=== PATIENT | female | born 1980 | race Hispanic/Latino ===

== ENCOUNTER 2017-09-29 20:17 | Emergency (ER) | payer BC, OTHER ==
[~2017-09-29] VITALS: Ht 157.5 cm; Wt 117.0 kg
[~2017-09-29 20:17] MED LIST: Z.0.CELEXA20 MG
[2017-09-29] MEDS: LORAZEPAM INJ 2 MG/ML VIAL IV ONE (20:50)
[2017-09-29] MEDS: PANTOPRAZOLE 40 MG 10ML VIAL IV STA (20:50)
[2017-09-29] MEDS: ONDANSETRON HCL INJ 2 MG/ML VIAL IV STA (20:50)
[2017-09-29] MEDS: SODIUM CHLORIDE 0.9% 1000ML 1,000 ML IV ONE (20:50)
[2017-09-29] MEDS: ACETAMINOPHEN 325 MG TAB PO ONE (21:09)
[2017-09-29 22:35] VITALS: BP 113/72
== END 2017-09-29 22:31 | disposition home or self-care (01) ==
LOC: FSED 20:17
DX: R10.13 Epigastric pain (principal); R11.2 Nausea with vomiting, unspecified; K21.9 Gastro-esophageal reflux disease without esophagitis; F41.1 Generalized anxiety disorder
CPT/HCPCS: 80053; 81003; 85025; 99284; J2060; J2405; J7030

== ENCOUNTER 2018-01-08 21:00 | Emergency (ER) | payer BC ==
[~2018-01-08] VITALS: Ht 160 cm; Wt 113.4 kg
[2018-01-08] MEDS ORDERED: FAMOTIDINE 20 MG/2 ML VIAL IV STA (21:25)
[2018-01-08] MEDS ORDERED: ONDANSETRON HCL INJ 2 MG/ML VIAL IV ONE (21:25)
[2018-01-08] MEDS ORDERED: SODIUM CHLORIDE 0.9% 1000ML 1,000 ML IV SCH (21:30)
[2018-01-08] MEDS ORDERED: LORAZEPAM INJ 2 MG/ML VIAL IV ONE (21:30)
[2018-01-08] MEDS ORDERED: KETOROLAC TROMETHAMINE 30 MG/ML VIAL IV STA (22:00)
--- NOTE | 2018-01-13 07:52 | Operative Report ---
DATE OF PROCEDURE: NO DICTATION, LENGTH 0:1 Job#: [id number] RI
--- OUTSIDE RECORDS SUMMARY | 2018-01-19 11:13 | XMS REPORT | Continuity of Care Document ---
Author Author [facility] Interface Address Unknown Phone Unavailable Problems Problem Status Onset Date Classification Date Reported Comments Source Influenza-like symptoms 04/23/2017 Diagnosis 04/23/2017 [facility] Exposure to Influenzavirus 04/23/2017 Diagnosis 04/23/2017 [facility] Headache 04/23/2017 Diagnosis 04/23/2017 [facility] Body mass index 40+ - severely obese 04/23/2017 Diagnosis 04/23/2017 [facility] Medications Medication Details Route Status Patient Instructions Ordering Provider Order Date Source Oseltamivir 75 MG Oral Capsule [Tamiflu] Tamiflu 75 mg capsule Take 1 capsule every day by oral route as directed for 10 days. Active [facility] Allergies, Adverse Reactions, Alerts Substance Category Reaction Severity Reaction type Status Date Reported Comments Source Immunizations Immunization Date Given Site Status Last Updated Comments Source Results Order Name Results Value Reference Range Date Interpretation Comments Source Influenza A negative 04/23/2017 [facility] Influenza B negative 04/23/2017 [facility] Vital Signs Vital Sign Value Date Comments Source Diastolic (mm Hg) 80 04/23/2017 [facility] Height 63 04/23/2017 [facility] Systolic (mm Hg) 122 04/23/2017 [facility] Weight 250 04/23/2017 [facility] Encounters Location Location Details Encounter Type Encounter Number Reason For Visit Attending Provider ADM Date DC Date Status Source [place] [facility] - [id number] Niño-C: [address] [place] [address], Ph. [id number] Katia Reeves 04/23/2017 [facility] [place] [facility] - [id number] Niño-C: [address] [place] [address], Ph. [id number] Katia Choiroy 04/23/2017 [facility] Procedures Procedure Code Date Perfomer Comments Source
--- OUTSIDE RECORDS SUMMARY | 2018-01-19 11:13 | XMS REPORT | Encounter Summary ---
Author Organization Unknown Address [address] [place] [address] Phone [phone] Care Team Providers Care Dry Kiln Loader Name Role Phone Kvng Richardson OD 3 [phone] Reason for Visit Medical Complaint Instructions 1. Influenza-like symptoms rapid flu (A+B) 2. Exposure to Influenzavirus Tamiflu 75 mg capsule 3. Headache headache: care instructions 4. Body mass index 40+ - severely obese Discussion Note Pt is in NAD; Verbalizes understanding of all instructions with no questions at this time. Plan of Care Patient Instructions Take Tamiflu (oseltamivir) as directed for the flu. Alternate with Ibuprofen and acetaminophen every 4hrs as needed for pain/fever/headache. Proper hydration and rest. Return to work/school if free of fever for 24-hrs. Do not share any utensils/cups, no kissing, recommend hand washing after coughing/sneezing/blowing nose and cover face when you do so. Take medications as prescribed. Return to clinic or follow up with your PCP within 2-3 days if symptoms worsen as discussed. Recommend follow a low fat/carb diet and exercise 30-45 mins/d 3-4 days a week. Reminders Provider Appointments None recorded. Lab Rapid Flu (A+B) 04/23/2017 [facility] Referral None recorded. Procedures None recorded. Surgeries None recorded. Imaging None recorded. Medications Name Start Date Tamiflu 75 mg capsule Take 1 capsule every day by oral route as directed for 10 days. Medications Administered None recorded. Vitals Height Weight BMI Blood Pressure 5 ft 3 in 250 lbs 44.3 kg/m2 122/80 mm[Hg] Lab Results Date Name Specimen Result Interpretation Description Value Range Status Address Rapid Flu (A+B) Influenza a negative [facility]: [address] [place] [address] Influenza B negative [facility]: [address] [place] [address] Allergies Code Code System Name Reaction Severity Status Onset NKDA Problems None recorded. Procedures None recorded. Vaccine List None recorded. Social History Smoking Status Never Smoker Past Encounters 04/23/2017 JOAN James-C: [address] [place] [address], Ph. 04/23/2017 Influenza-like Symptoms; Exposure to Influenzavirus; Headache; Body Mass Index 40+ - Severely Obese JOAN James-C: [address] [place] [address], Ph. History of Present Illness Headache Reported By: Patient HPI: Location: bilateral. Quality: not the worst headache ever, similar to previous headaches. Severity: moderate, pain level 6-7/10. Duration: constant. Onset/Timing: gradual, still present. Context: not related to trauma. Modifying factors: OTC medication, nothing makes it worse, sleep, rest. Associated Symptoms: no fever/chills, no muscle aches, no vomiting, no sensitivity to light, tearing/watery eyes, no confusion, no slurred speech, no preceeding aura, no double vision, normal feeling/sensation, no motor paralysis, no dizziness, no sleep disturbances, no nosebleeds, no hoarseness, no sore throat, no hearing loss, headache; feeling feverish, body aches and chills Pkeiwdi-Shfrc-Aog Reported By: Patient HPI: Quality: symptoms worse during the day. Duration: 1 days. Severity: subjective temperature. Context: no ill contacts, no tick/insect bites, no recent travel, no new medications. Associated Symptoms: no fever/chills, no muscle aches, no rash, no lethargy, headache; feeling feverish, body aches and chills. Modifying Factors nothing gives relief Review of Systems:ROS as noted in the HPI Review of Systems Basic Reported By: Patient Physical Exam Adult Basic, Adult Female Complete, Adult Male Complete Reported By: Patient Constitutional: General Appearance: obese. Level of Distress: NAD. Ambulation: ambulating normally Psychiatric: Mental Status: active and alert. Orientation: to time, to place, to person Eyes: Lids and Conjunctivae: non-injected, no discharge, no pallor. Pupils: PERRLA. Corneas: grossly intact. EOM: EOMI. Lens: clear. Vision: peripheral vision grossly intact Ooo-Niju-Gstkf-Throat: Ears: no lesions on external ear, no outer ear tenderness, EACs clear, TMs clear. Hearing: no hearing loss. Nose: no lesions on external nose, nares patent, no septal deviation, nasal passages clear, no sinus tenderness, no nasal discharge. Lips, Teeth, and Gums: no mouth or lip ulcers, no bleeding gums, normal dentition. Oropharynx: moist mucous membranes, no erythema, no exudates, tonsils not enlarged Neck: Neck: supple. Lymph Nodes: no cervical LAD Lungs: Respiratory effort: no dyspnea, no tachypnea, no use of accessory muscles, no intercostal retractions. Auscultation: breath sounds normal, good air movement Cardiovascular: Heart Auscultation: RRR, no murmurs Neurologic: Gait and Station: normal gait, normal station. Cranial Nerves: grossly intact. Sensation: grossly intact. Reflexes: DTRs 2+ bilaterally throughout. Coordination and Cerebellum: lokuao-hm-chnk intact, no tremor
== END 2018-01-08 22:59 | disposition home or self-care (01) ==
LOC: FSED 21:00
DX: R11.2 Nausea with vomiting, unspecified (principal); R19.7 Diarrhea, unspecified; F41.1 Generalized anxiety disorder; F12.90 Cannabis use, unspecified, uncomplicated
CPT/HCPCS: 80053; 80307; 81003; 81025; 85025; 99283; J2060; J2405; J7030

== ENCOUNTER 2019-11-07 10:25 | Emergency (ER) | payer BC, OTHER ==
[~2019-11-07] VITALS: Ht 160 cm; Wt 99.8 kg
[2019-11-07] MEDS ORDERED: ONDANSETRON HCL INJ 2MG/ML 2ML 2 MG/ML VIAL IV STA (11:10)
[2019-11-07] MEDS ORDERED: SODIUM CHLORIDE 0.9% 1000ML 1,000 ML IV STA (11:10)
[2019-11-07] MEDS ORDERED: SODIUM CHLORIDE FLUSH 10 ML SYR INJ PRN (11:15)
[2019-11-07] MEDS ORDERED: DICYCLOMINE HCL 20 MG/2 ML VIAL IM ONE ×2 (11:15→11:34)
[2019-11-07] MEDS ORDERED: ONDANSETRON HCL INJ 2MG/ML 2ML 2 MG/ML VIAL ONE (11:34)
[2019-11-07] MEDS ORDERED: SODIUM CHLORIDE 0.9% 1000ML 1,000 ML ONE (11:34)
[2019-11-07 11:43] LABS: BASOPHILS % 0.4 % (0.0-1.0); EOSINOPHILS # (AUTO) 0.2 (0.0-0.4); EOSINOPHILS % 3.1 % (0.0-6.0); HEMATOCRIT 43.2 % (34.2-44.1); LYMPHOCYTES # (AUTO) 2.5 (1.0-3.2); LYMPHOCYTES % 32.3 % (18.0-39.1); MEAN CORPUSCULAR HGB CONC 32.4 g/dL (31-35); MONOCYTES # (AUTO) 0.5 (0.2-0.8); MONOCYTES % 6.8 % (4.4-11.3); NEUTROPHILS # (AUTO) 4.5 (2.1-6.9); PLATELET COUNT 324 x10e3/uL (140-360); RED BLOOD COUNT 5.61 x10e6/uL (3.6-5.1); RED CELL DISTRIBUTION WIDTH 14.6 % (11.7-14.4)
--- OUTSIDE RECORDS SUMMARY | 2019-11-07 11:58 | XMS REPORT | Summary of Care ---
Author Author ADELITA Miller M.A. 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 Active Pantoprazole Sodium 40 MG Oral Tablet Delayed Release TAKE 1 TABLET DAILY. * Refills: 0 Active 7 Tablet Bottle Ondansetron 4 MG Oral Tablet Disintegrating * Refills: 0 Active FLUoxetine HCl - 20 MG Oral Capsule TAKE 1 CAPSULE BY MOUTH EVERY DAY * Quantity: 30 Refills: 1 [facility] [place] * Start : 23-Oct-2017 Active TraZODone HCl - 50 MG Oral Tablet TAKE 1 TO 2 TABLETS 1-2 hours prior to BEDTIME * Quantity: 60 Refills: 1 [facility]P., [place] * Start : 23-Oct-2017 Active Allergies and Adverse Reactions Name Dates Details No Known Drug Allergies (Allergy) Status : Active Past Medical History Name Dates Details History of anxiety (V11.8, Z86.59) Status: Resolved History of depression (V11.8, Z86.59) Status: Resolved Procedures Procedure Dates Details History of No history of surgery Complet ed Immunization Name Dates Details Immunizations not documented Family History Name Dates Details Family history of diabetes mellitus (V18 .0, Z83.3) Status: Active Name Dates Details Family history of hepatic cirrhosis (V18 .59, Z83.79) Status: Active Family history of hypertension (V17.49, Z82.49) Status: Active Social History Name Dates Details - Status: Name Dates Details Smoker. current status unknown Vital Signs Date Test Result Details No Known Vitals to report Results Date Description Value Details Results not documented Plan of Care Name Dates Details Planned Observations Planned Goals not documented Planned Encounters Appointment; SALVADOR HAMILTON NP On: 26-Mar-2018 11:00 Interventions Provided Medication Changes* FLUoxetine HCl - 20 MG Oral Capsule - Renew * TraZODone HCl - 50 MG Oral Tablet - Renew Instructions Name Dates Details Instructions not documented Encounters Appointment; SALVADOR HAMILTON NP Encounter Diagnosis: Problem not documented On: 23-Oct-2017 10:30 Appointment; SALVADOR HAMILTON NP Encounter Diagnosis: Problem not documented On: 26-Mar-2018 11:00
--- OUTSIDE RECORDS SUMMARY | 2019-11-07 11:58 | XMS REPORT | Clinical Summary ---
Author Author [facility] Organization [facility] Address Unknown Phone Unavailable Care Team Providers Care Clerical Associate Name Role Phone Lanny Snowden MD PCP Allergies No Known Allergies Medications End Date Status Medication Sig Dispensed Refills Start Date Active ondansetron (ZOFRAN) 4 MG Take 4 mg by 0 tablet mouth every 6 (six) hours as needed for nausea or vomiting. Active pantoprazole (PROTONIX) Take by 0 40 MG EC tablet mouth. Active ferrous fumarate-vitamin Take 1 tablet 30 tablet 6 C (FRANCISCO-SEQUELS, by mouth 9 IRON-VIT C,) 200 mg (65 daily. mg iron)-25 mg tablet extended release ER tabletIndications: Iron deficiency 03/08/2019 ergocalciferol (VITAMIN Take 1 12 capsule 1 D2) 50,000 unit capsule 8 capsuleIndications: (50,000 Units Vitamin D deficiency total) by mouth once a week. 03/08/2019 cyanocobalamin Take 1 tablet 30 tablet 11 (cyanocobalamin) 1000 MCG (1,000 mcg 8 tabletIndications: B12 total) by deficiency mouth daily. 06/04/2019 FLUoxetine (PROzac) 20 MG Take 2 60 capsule 3 capsuleIndications: capsules (40 9 Anxiety and depression, mg total) by Other insomnia mouth daily. 06/04/2019 amitriptyline (ELAVIL) 25 Take 1 tablet 30 tablet 11 MG tabletIndications: (25 mg total) 9 Anxiety and depression, by mouth Other insomnia nightly. 06/04/2019 lamoTRIgine (LaMICtal) 25 Take 4 120 tablet 1 MG tabletIndications: tablets (100 9 Mood and affect mg total) by disturbance mouth daily. Active Problems Problem Noted Date Other insomnia 06/04/2018 Restless leg 06/04/2018 Mood and affect disturbance 06/04/2018 Chronic midline low back pain without sciatica 06/04 Anxiety and depression 03/04/2018 Mixed hyperlipidemia 03/04/2018 Family history of diabetes mellitus 03/04/2018 History of anemia 03/04/2018 Bilateral carpal tunnel syndrome 03/04/2018 Gastroesophageal reflux disease 03/04/2018 Immunizations Name Administration Dates Next Due FLUBLOK QUAD PF 03/04/2018 Family History Medical History Relation Name Comments Alcohol abuse Father Cirrhosis Father Diabetes Mother Hyperlipidemia Mother Osteopenia Mother Relation Name Status Comments Father Mother Alive Social History Date Tobacco Use Types Packs/Day Years Used Never Smoker Smokeless Tobacco: Never Used Tobacco Cessation: Counseling Given: Yes Drinks/Week oz/Week Comments Alcohol Use occ. No Alcohol Habits Answer Date Recorded How often do you have a drink containing alcohol? Never 03/04/2018 How many drinks containing alcohol do you have on No t asked a typical day when you are drinking? How often do you have six or more drinks on one Not asked occasion? Sex Assigned at Date Recorded Not on file Industry Job Start Date Occupation Not on file Not on file Not on file Travel End Travel History Travel Start No recent travel history available. 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
--- OUTSIDE RECORDS SUMMARY | 2019-11-07 11:58 | XMS REPORT | Continuity of Care Document ---
Author Author [facility] t Organization [facility] Address [address] [place] [address] Phone Unavailable Care Team Providers Care Cage Clerk Name Role Phone PIERCE BROOKS PCP SALVADOR HAMILTON NP Attphys Unavailable Payers Payer Name Policy Type Policy Number Effective Date Expiration Date S sebastian [employer] Ppo [id number] 2006 00:00:00 [facility] Problems Condition Name Condition Details Condition Category Status Onset Date Resolution Date Last Treatment Date Treating Clinician Comments Source Other insomnia Other insomnia Disease Active 2018-06-04 00:00:00 Karthikeyan [facility] Restless leg Restless leg Disease Active 2018-06-04 00:00:00 [place] [facility] Mood and affect disturbance Mood and affect disturbance Disease Active 2018-06-04 00:00:00 Karthikeyan [facility] Chronic midline low back pain without sciatica Chronic midline low back pain without sciatica Disease Active 2018-06-04 00:00:00 [place] [facility] Anxiety and depression Anxiety and depression Disease Active 2018-03-04 00:00:[address] Mixed hyperlipidemia Mixed hyperlipidemia Disease Active 00:00:00 [place] [facility] Family history of diabetes mellitus Family history of diabetes m ellitus Disease Active 2018-03-04 00:00:00 [place] History of anemia History of anemia Disease Active 2018-03-04 00:00:00 [place] [facility] Bilateral carpal tunnel syndrome Bilateral carpal tunnel syndrom e Disease Active 2018-03-04 00:00:00 [place] Gastroesophageal reflux disease Gastroesophageal reflux disease Dis ease Active 2018-03-04 00:00:00 Karthikeyan [place] History of anxiety History of anxiety Problem HL7.CCDAR2 Resolved [facility] History of depression History of depression Problem HL7.CCDAR2 Resolved [facility] Severe episode of recurrent major depres sive disorder, 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 Family History Family Member Diagnosis Comments Start Date Stop Date Source Mother Family history of diabetes mellitus [facility] Father Family history of hepatic cirrhosis [facility] Father Family history of hypertension [facility] Natural father Alcohol abuse Karthikeyan Candelario Natural father Cirrhosis [facility] thod[facility] Natural mother Diabetes [facility] th[facility] Natural mother Hyperlipidemia [place] Natural mother Osteopenia [facility] Social History Social Habit Start Date Stop Date Quantity Comments Source History SDOH Alcohol Std Drinks Karthikeyan Greenist History SDOH Alcohol Binge Karthikeyan Candelario Sex Assigned At [facility] Alcohol intake 2018-06-04 00:00:00 2018-06-04 00:00:00 Current non-drinker of alcohol (finding) Karthikeyan Candelario History SDOH Alcohol Frequency 2018-03-04 00:00:00 2018-03-04 00:00:0 0 1 Karthikeyan Candelario Alcohol Comment 2018-03-04 00:00:00 2018-03-04 00:00:00 occ. Karthikeyan Candelario Smoking Status Start Date Stop Date Source Smoker. current status unknown [facility] Never smoker Karthikeyan Bennett t Medications Ordered Medication Name Filled Medication Name Start Date Stop Da te Current Medication? Ordering Clinician Indication Dosage Frequency Signature (SIG) Comments Components Source ferrous fumarate-vitamin C (FRANCISCO-SEQUEL S, IRON-VIT C,) 200 mg (65 mg iron)-25 mg tablet extended release ER tablet 2018-06-07 00:00:00 Y es Iron deficiency 1{tbl} QD Take 1 tablet by mouth daily. Karthikeyan Candelario ondansetron (ZOFRAN) 4 MG tablet 2018-06-04 13:06:25 Yes 4mg Q6H Take 4 mg by mouth every 6 (six) hours as needed for nausea or vomiting. Karthikeyan Candelario pantoprazole (PROTONIX) 40 MG EC tablet 2018-06-04 13:06:25 Yes Take by mouth. Karthikeyan Candelario FLUoxetine (PROzac) 20 MG capsule 2018-06-04 00:00:00 2019 23:59:00 No Other insomnia 40mg QD Take 2 capsules (40 mg total) by mo [facility] daily. Karthikeyan Candelario amitriptyline (ELAVIL) 25 MG tablet 2018-06-04 00:00:0 0 2019-06-04 23:59:00 No Other insomnia 25mg QD Take 1 tablet (25 mg total) by mo [facility] nightly. Karthikeyan Candelario lamoTRIgine (LaMICtal) 25 MG tablet 2018-06-04 00:00:0 0 2019-06-04 23:59:00 No Mood and affect disturbance 100mg QD Take 4 tablets (100 mg total) by mouth daily. Karthikeyan Candelario ergocalciferol (VITAMIN D2) 50,000 unit capsule 2018-03-08 00:00:00 2019-03-08 23:59:00 No Vitamin D deficiency 04289T Q7D Take 1 capsule (50,000 Units total) by mouth once a week. Karthikeyan interiano cyanocobalamin (cyanocobalamin) 1000 MCG tablet 2018-03-08 00:00:00 2019-03-08 23:59:00 No B12 deficiency 1000ug QD Take 1 tab let (1,000 mcg total) by mouth daily. Karthikeyan Candelario FLUoxetine HCl - 20 MG Oral Capsule FLUoxetine HCl - 20 MG O ral Capsule 2017-10-23 00:00:00 Yes SALVADOR HAMILTON N.P. 1 QD TAKE 1 CAPSULE BY MOUTH EVERY DAY [facility] TraZODone HCl - 50 MG Oral Tablet TraZODone HCl - 50 MG Oral Tablet 2017-10-23 00:00:00 Yes SALVADOR HAMILTON N.P. TAKE 1 TO 2 TABLETS 1-2 hours prior to BEDTIME [facility] Citalopram Hydrobromide (Celexa) 20 Mg Tablet Citalopr am Hydrobromide (Celexa) 20 Mg Tablet Yes Bid [facility] ALPRAZolam 1 MG Oral Tablet ALPRAZolam 1 MG Oral Tablet Yes 1 QD TAKE 1 TABLET DAILY. [facility] Pantoprazole Sodium 40 MG Oral Tablet Delayed Release Pantoprazole Sodium 40 MG Oral Tablet Delayed Release Yes 1 QD TAKE 1 TAB LET DAILY. [facility] Ondansetron 4 MG Oral Tablet Disintegrating Ondansetro n 4 MG Oral Tablet Disintegrating Yes [facility] Immunizations Ordered Immunization Name Filled Immunization Name Date Status Comments Source TC MONSIVAIS PF 2018-03-04 00:00:00 Completed Karthikeyan Candelario Vital Signs Vital Name Observation Time Observation Value Comments Source BP Systolic 2017-10-23 10:49:00 130 mm[Hg] Location: EDDI Positi on: Sitting [facility] BP Diastolic 2017-10-23 10:49:00 87 mm[Hg] Location: OVIDIO; Positi on: Sitting [facility] Height 2017-10-23 10:49:00 63 [in_us] [facility] Weight 2017-10-23 10:49:00 263.5 [lb_av] [facility] Body Mass Index Calculated 2017-10-23 10:49:00 46.68 kg/m2 [facility] Temperature 2017-10-23 10:49:00 97.7 [degF] Method: Temporal [facility] Heart Rate 2017-10-23 10:49:00 63 /min Location: L Brachial Artery; [facility] Respiration Rate 2017-10-23 10:49:00 16 /min Quality: Normal [facility] Procedures Procedure Date / Time Performed Performing Clinician Sour e [[facility]] CMP W/EGFR 2017-10-23 00:00:00 [facility] [[facility]] CBC (INCLUDES DIFF/PLT) 2017-10-23 00:00:00 [facility] [[facility]] LIPID PANEL 2017-10-23 00:00:00 [facility] [[facility]] TSH, 3RD GENERATION 2017-10-23 00:00:00 [facility] Plan of Care Planned Activity Planned Date Details Comments Source Future Scheduled Test 2019-11-05 00:00:00 INFLUENZA VACCINE [code = INFLUENZA VACCINE] Karthikeyan Candelario Future Scheduled Test 2015-12-06 00:00:00 Screening for denis gnant neoplasm of cervix (procedure) [code = 385465327] Karthikeyan colon Encounters Start Date/Time End Date/Time Encounter Type Admission Type [facility] Care Facility Care Department Encounter ID Source 2018-03-26 11:00:00 2018-03-26 11:00:00 Appointment; SALVADOR SAL NP TEJADA-FOSTER, NORMA, NP [facility] [id number] [facility] 2018-01-08 21:00:00 2018-01-08 22:59:00 Departed Emergency Room [facility] [id number] [facility] 2017-10-23 10:30:00 2017-10-23 10:30:00 Appointment; SALVADOR SAL NP TEJADA-FOSTER, NORMA, NP [facility] [id number] [facility] 2017-09-29 20:17:00 2017-09-29 22:31:00 Departed Emergency Room [facility] [id number] [facility] Results Test Description Test Time Test Comments Results Result Comments Source [[facility]] LIPID PANEL 2017-10-23 12:28:00 Test Item CHOLESTEROL, TOTAL; Above High Threshold (test code = 2093-3) 227 m g/dl <200 HDL CHOLESTEROL; Below Low Threshold (test code = 2085-9) 48 mg/dl >50 TRIGLYCERIDES; Above High Threshold (test code = 2571-8) 230 mg/dl <150 LDL-CHOLESTEROL; Above High Threshold (test code = 82359-7) 142 {MG/DL SUPRIYA} Reference range: <100 Desirable range <1 00 mg/dL for primary prevention; <70 mg/dL for patients with CHD or diabetic patients with > or = 2 CHD risk factors. LDL-C is now calculated using the Eliseo-Apple calculation, which is a validated novel method providing better accuracy than the Friedewald equation in the estimation of LDL-C. Eliseo SOSA et al. ADRIAN. 2013;310(19): 4353-0213 (http ://education.SocialSmack.Transerv/faq/VDO496) CHOL/HDLC RATIO (test code = CHOL/HDLC RATIO) 4.7 {CALC} <5.0 N NON HDL CHOLESTEROL (test code = NON HDL CHOLESTEROL) 179 {MG/DL C AL} <130 For patients with diabetes plus 1 major ASCVD risk factor, treating to a non-HDL-C goal of <100 mg/dL (LDL-C of <70 mg/dL) is considered a therapeutic option. [facility]] CMP [id number] 12:28:00* Test Item Value Reference Range Interpretation Comments GLUCOSE; Normal (test code = 1547-9) 86 mg/dl 65-99 N Fasting reference interval UREA NITROGEN (BUN) (test code = UREA NITROGEN (BUN)) 9 mg/dl 7-25 N CREATININE (test code = CREATININE) 0.56 mg/dl 0.50-1.10 N eGFR NON- (test code = eGFR NON-VITALIY N EMIRATI) 122 {ML/MIN/1.7} > OR = 60 N eGFR (test code = eGFR ) 14 1 {ML/MIN/1.7} > OR = 60 N BUN/CREATININE RATIO (test code = BUN/CREATININE RATIO) NOT APPLICA BLE 6-22 SODIUM (test code = SODIUM) 138 mmol/L 135-146 N POTASSIUM (test code = POTASSIUM) 4.4 mmol/L 3.5-5.3 N CHLORIDE (test code = CHLORIDE) 103 mmol/L 98-110 N CARBON DIOXIDE (test code = CARBON DIOXIDE) 25 mmol/L 20-31 N CALCIUM (test code = CALCIUM) 9.3 mg/dl 8.6-10.2 N PROTEIN, TOTAL (test code = PROTEIN, TOTAL) 7.4 g/dl 6.1-8.1 N ALBUMIN (test code = ALBUMIN) 4.2 g/dl 3.6-5.1 N GLOBULIN (test code = GLOBULIN) 3.2 {G/DL CALC} 1.9-3.7 N ALBUMIN/GLOBULIN RATIO (test code = ALBUMIN/GLOBULIN RATIO) 1.3 {CALC} 1.0-2.5 N BILIRUBIN, TOTAL; Normal (test code = 30040-5) 0.5 mg/dl 0.2-1.2 N ALKALINE PHSPHATASE (test code = ALKALINE PHSPHATASE) 114 u/l 33-115 N AST; Normal (test code = 1916-6) 12 u/l 10-30 N ALT; Normal (test code = 1742-6) 17 u/l 6-29 N [facility]] CBC (INCLUDES DIFF/PLT)2017-10-23 12:28:00* Test Item Value Reference Range Interpretation Comments WHITE BLOOD CELL COUNT (test code = WHITE BLOOD CELL COUNT) 10.8 {Thousand/u} 3.8-10.8 N RED BLOOD CELL COUNT (test code = RED BLOOD CELL COUNT) 5.27 {Million/uL} 3.80-5.10 HEMAGLOBIN; Normal (test code = 96060-5) 13.7 g/dl 11.7-15.5 N HEMATOCRIT; Normal (test code = 4544-3) 40.5 % 35.0-45.0 N MCV; Below Low Threshold (test code = 787-2) 76.9 fL 80.0-100. 0 MCHC; Normal (test code = 72539-7) 33.8 g/dl 32.0-36.0 N RDW; Normal (test code = 788-0) 14.3 % 11.0-15.0 N PLATELET COUNT; Normal (test code = 777-3) 358 {Thousand/u} 140-400 N MPV; Normal (test code = 46054-4) 10.6 fL 7.5-12.5 N ABSOLUTE NEUTROPHILS (test code = ABSOLUTE NEUTROPHILS) 6793 {cells/uL} 4728-9083 N ABSOLUTE LYMPHOCYTES (test code = ABSOLUTE LYMPHOCYTES) 3229 {cells/uL} 850-3900 N ABSOLUTE MONOCYTES (test code = ABSOLUTE MONOCYTES) 421 {cells/uL} 200-950 N ABSOLUTE EOSINOPHILS (test code = ABSOLUTE EOSINOPHILS) 292 {cells/ uL} 15-500 N ABSOLUTE BASOPHILS (test code = ABSOLUTE BASOPHILS) 65 {cells/uL} 0 -200 N NEUTROPHILS (test code = NEUTROPHILS) 62.9 % N LYMPHOCYTES (test code = LYMPHOCYTES) 29.9 % N MONOCYTES; Normal (test code = 83333-6) 3.9 % N EOSINOPHILS; Normal (test code = 36818-7) 2.7 % N BASOPHILS; Normal (test code = 15163-8) 0.6 % N [facility]] TSH, 3RD [id number] 12:28:00* Test Item Value Reference Range Interpretation Comments TSH; Normal (test code = 29226-6) 0.51 {MIU/L} N Reference Range > or = 20 Years 0.40-4.50 Ranges First trimester 0.26-2.66 Second trimester 0.55-2.73 Third trimester 0.43-2.91 [facility]
[2019-11-07] MEDS ORDERED: METRONIDAZOLE500 MG PO (12:36)
[2019-11-07] MEDS ORDERED: LOMOTIL TABLET1 EACH PO (12:36)
[2019-11-07] MEDS ORDERED: CIPRO500 MG PO (12:36)
[2019-11-07] MEDS ORDERED: LEVSIN-SL0.125 MG SL (12:36)
[2019-11-07] MEDS ORDERED: ONDANSETRON ODT8 MG PO (12:36)
--- NOTE | 2019-11-07 12:36 | Emergency Department Note ---
History of Present Illnes History of Present Illness Chief Complaint: buq cramping pain History of Present Illness This is a 39 year old female. was doing well prior to this. then n/v/d then abdominal cramping Historian: Patient Arrival Mode: Car History limited by: condition of the patient Onset (how long ago): week(s) (1) Location: buq Quality: cramping Radiation: Reports non-radiation Severity: moderate Onset quality: gradual Duration (how long): week(s) (1) Timing of current episode: constant Progression: worsening Chronicity: new Context: Denies recent illness, Denies recent surgery, Denies recent immob ilization, Denies recent travel, Denies trauma/injury, Denies new medications, Denies hx of DVT/PE Relieving factors: rest Exacerbating factors: movement Associated symptoms: Reports nausea/vomiting Treatments prior to arrival: none Past Medical/Family History Physician Review I have reviewed the patient's past medical and family history. Any updates have been documented here. Past Medical History Recent Fever: No Clinical Suspicion of Infectio: No New/Unexplained Change in Ment: No Past Medical History: Anxiety Other Medical History: ANXIETY Past Surgical History: None Social History Smoking Cessation: Never Smoker Alcohol Use: None Any Illegal Drug Use: No Other Last Tetanus: unknown Any Pre-Existing Lines (PICC,: No Review of Systems Review of Systems Constitutional: Reports no symptoms EENTM: Reports no symptoms Cardiovascular: Reports no symptoms Respiratory: Reports no symptoms Gastrointestinal: Reports as per HPI Genitourinary: Reports no symptoms Musculoskeletal: Reports no symptoms Integumentary: Reports no symptoms Neurological: Reports no symptoms Psychological: Reports no symptoms Endocrine: Reports no symptoms Hematological/Lymphatic: Reports no symptoms Physical Exam Related Data Allergies: Coded Allergies: No Known Allergies (Verified , 09/29/17) Triage Vital Signs Vital Signs Date Time Temp Pulse Resp B/P (MAP) Pulse Ox O2 Delivery O2 Flow Rate FiO2 11/07/19 10:45 98.0 66 16 116/78 100 Room Air Vital signs reviewed: Yes Physical Exam CONSTITUTIONAL Constitutional: Present well-developed, Present well-nourished HENT HENT: Present normocephalic, Present atraumatic, Present oropharynx normal, Present nose normal, Present other (dry mm) HENT L/R: Present left ext ear normal, Present right ext ear normal EYES Eyes: Reports PERRL, Reports conjunctivae normal NECK Neck: Present ROM normal, Present supple PULMONARY Pulmonary: Present effort normal, Present breath sounds normal CARDIOVASCULAR Cardiovascular: Present regular rhythm, Present heart sounds normal, Present capillary refill normal, Present normal rate GASTROINTESTINAL Abdominal: Present soft, Present bowel sounds normal, Present tender (e pigastric); Absent distension, Absent guarding, Absent mass, Absent rebound, Absent hernia GENITOURINARY Genitourinary: Present exam deferred SKIN Skin: Present warm, Present dry MUSCULOSKELETAL Musculoskeletal: Present ROM normal NEUROLOGICAL Neurological: Present alert, Present oriented x 3, Present no gross motor or sensory deficits PSYCHOLOGICAL Psychological: Present mood/affect normal, Present judgement normal Results Laboratory Result Diagram: 11/07/19 1117 Laboratory Laboratory Tests Test 11/07/19 11:17 White Blood Count 7.84 x10e3/uL (4.8-10.8) Red Blood Count 5.61 x10e6/uL (3.6-5.1) Hemoglobin 14.0 g/dL (12.0-16.0) Hematocrit 43.2 % (34.2-44.1) Mean Corpuscular Volume 77.0 fL (81-99) Mean Corpuscular Hemoglobin 25.0 pg (28-32) Mean Corpuscular Hemoglobin Concent 32.4 g/dL (31-35) Red Cell Distribution Width 14.6 % (11.7-14.4) Platelet Count 324 x10e3/uL (140-360) Neutrophils (%) (Auto) 57.0 % (38.7-80.0) Lymphocytes (%) (Auto) 32.3 % (18.0-39.1) Monocytes (%) (Auto) 6.8 % (4.4-11.3) Eosinophils (%) (Auto) 3.1 % (0.0-6.0) Basophils (%) (Auto) 0.4 % (0.0-1.0) Neutrophils # (Auto) 4.5 (2.1-6.9) Lymphocytes # (Auto) 2.5 (1.0-3.2) Monocytes # (Auto) 0.5 (0.2-0.8) Eosinophils # (Auto) 0.2 (0.0-0.4) Basophils # (Auto) 0.0 (0.0-0.1) Absolute Immature Granulocyte (auto 0.03 x10e3/uL (0-0.1) Lab results reviewed: Yes (CMP NORMAL EXCEPT K=3.4) Assessment & Plan Medical Decision Making MDM gastroenteritis, dehydration Reassessment Reassessment time: 12:25 Reassessment SYMPTOMS RESOLVED Assessment & Plan Final Impression: (1) Acute gastroenteritis (2) Dehydration (3) Hypokalemia Depart Disposition: HOME, SELF-CARE Last Vital Signs Date Time Temp Pulse Resp B/P (MAP) Pulse Ox O2 Delivery O2 Flow Rate FiO2 11/07/19 10:45 98.0 66 16 116/78 100 Room Air Home Meds Active Scripts Hyoscyamine Sulfate (LEVSIN-SL) 0.125 Mg Tab.subl, 0.25 MG SL Q6HR PRN for CRAMPS, #30 TAB 1 Refill Prov:RODOLFO MOODY 11/07/19 Metronidazole (METRONIDAZOLE) 500 Mg Tablet, 500 MG PO Q8H, #30 TAB TAKE WITH JUICE AND FOOD Prov:RODOLFO MOODY 11/07/19 Ciprofloxacin Hcl (CIPRO) 500 Mg Tablet, 500 MG PO Q12H for 10 Days, #20 TAB Prov:RODOLFO MOODY 11/07/19 Diphenoxylate Hcl/Atropine (LOMOTIL TABLET) 1 Each Tablet, 2 TAB PO Q6HR PRN for DIARRHEA, #24 TAB Prov:RODOLFO MOODY 11/07/19 Ondansetron (ONDANSETRON ODT) 8 Mg Tab.rapdis, 4 MG PO Q4HR PRN for NAUSEA AND VOMITING, #30 TAB 1 Refill Prov:RODOLFO MOODY 11/07/19 Reported Medications Citalopram Hydrobromide (Celexa) 20 Mg Tablet, bid 05/08/11 Medications in the ED Sodium Chloride 10 ml PRN PRN INJ IV SITE FLUSH Last administered on 11/07/19at 11:32; Admin Dose 10 ML; Start 11/07/19 at 11:15; Stop 12/07/19 at 11:14 Sodium Chloride 1,000 ml @ 1,000 mls/hr Q1H STAT IV Last administered on 11/07/19at 11:33; Admin Dose 1,000 MLS/HR; Start 11/07/19 at 11:10; Stop 11/07/19 at 12:09; Status DC Ondansetron HCl 4 mg NOW STAT IV Last administered on 11/07/19at 11:29; Admin Dose 4 MG; Start 11/07/19 at 11:10; Stop 11/07/19 at 11:18; Status DC Dicyclomine HCl 20 mg ONCE ONCE IM Last administered on 11/07/19at 11:32; Admin Dose 20 MG; Start 11/07/19 at 11:15; Stop 11/07/19 at 11:16; Status DC Ondansetron HCl 4 mg STK-MED ONCE .ROUTE ; Start 11/07/19 at 11:34; Stop 11/07/19 at 11:27; Status DC Dicyclomine HCl 20 mg STK-MED ONCE IM ; Start 11/07/19 at 11:34; Stop 11/07/19 at 11:28; Status DC Sodium Chloride 1,000 ml @ ud STK-MED ONCE .ROUTE ; Start 11/07/19 at 11:34; Stop 11/07/19 at 11:28; Status DC RODOLFO MOODY Nov 07, 2019 12:36
[2019-11-07 13:23] VITALS: BP 120/80
== END 2019-11-07 13:21 | disposition home or self-care (01) ==
LOC: FSED 10:43
DX: K52.9 Noninfective gastroenteritis and colitis, unspecified (principal); R10.9 Unspecified abdominal pain; E86.0 Dehydration; E87.6 Hypokalemia; F41.9 Anxiety disorder, unspecified
CPT/HCPCS: 36415; 80053; 81003; 81025; 85025; 87045; 87493; 99284; J0500; J2405; J7030

== ENCOUNTER 2023-12-02 08:10 | Emergency (ER) | payer SELFPAY ==
[~2023-12-02] VITALS: Ht 160 cm; Wt 105.0 kg
[~2023-12-02 08:10] MED LIST changes: +CIPRO500 MG PO; +LEVSIN-SL0.125 MG SL; +LOMOTIL TABLET1 EACH PO; +METRONIDAZOLE500 MG PO; +ONDANSETRON ODT8 MG PO
[2023-12-02 08:31] VITALS: PULSE 53; RESP 16; TEMP 98; O2SAT 98
[2023-12-02] MEDS ORDERED: NAPROXEN500 MG PO (08:45)
[2023-12-02] MEDS: IBUPROFEN 600 MG TAB PO ONE (08:55)
[2023-12-02] MEDS: KETOROLAC TROMETHAMINE 30 MG/ML VIAL IM ONE (09:33)
[2023-12-02] MEDS: ONDANSETRON HCL 4 MG ORAL DISINTEGRATING TAB PO ONE (09:33)
== END 2023-12-02 09:53 | disposition home or self-care (01) ==
LOC: FSED 08:14
DX: S43.491A Other sprain of right shoulder joint, initial encounter (principal); X50.1XXA Overexertion from prolonged static or awkward postures, initial encounter; Y92.59 Other trade areas as the place of occurrence of the external cause; F41.9 Anxiety disorder, unspecified; F32.A Depression, unspecified
CPT/HCPCS: 73030; 99284; J1885; Q0162